=== PATIENT | female | born 1995 | race Caucasian/White ===

== ENCOUNTER 2022-11-08 07:30 | Outpatient (RCR) | payer BC, SELFPAY | END 2023-01-16 08:29 | disposition home or self-care (01) | PROVIDERS: Visit Provider Nurse Practitioner Family | DX: M25.572 Pain in left ankle and joints of left foot (principal); Z51.89 Encounter for other specified aftercare | CPT/HCPCS: 97110; 97140; 97161 ==

== ENCOUNTER 2024-11-26 09:15 | Outpatient (CLI) | payer BC, SELFPAY | END 2024-11-26 09:16 | disposition home or self-care (01) | LOC: NFLDREF 09:15 | PROVIDERS: Visit Provider Registered Nurse | DX: R23.2 Flushing (principal) | CPT/HCPCS: 84443 ==